=== PATIENT | female | born 1955 | race Caucasian/White ===

== ENCOUNTER 2017-12-07 11:29 | Emergency (ER) | payer OTHER ==
[~2017-12-07] VITALS: Ht 152.4 cm; Wt 62.6 kg
--- NOTE | 2017-12-07 11:37 | ED NEURO DEFICIT/STROKE ---
History of Present Illness General Chief Complaint: Neuro Symptoms/ Deficit Stated Complaint: FACE TINGILING Source: patient Exam Limitations: no limitations Vital Signs & Intake/Output Vital Signs & Intake/Output Vital Signs Date Time Temp Pulse Resp B/P B/P Pulse O2 O2 Flow FiO2 Mean Ox Delivery Rate 12/07 1321 98.6 62 18 113/59 96 Room Air 12/07 1209 98 Room Air 12/07 1142 97.8 68 16 122/82 98 Room Air Allergies Coded Allergies: MDX - Codeine (07/22/08) MDX - Flu Vaccine (07/22/08) MDX - Penicillin (07/22/08) MDX - Pneumococcal Vaccine (07/22/08) Uncoded Allergies: Med Allergies PENICILLIN,CODEINE, FLU SHOT, PNEUMONIA SHOT Triage Nurses Notes Reviewed? 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 Patient first felt it 2 days ago while walking her dog, described as pins and needles that lasted for 2 minutes and self- resolved. Happened again yesterday while walking her dog and again today while using the computer. Sole symptom was right facial paresthesia, same each time. She denies concurrent weakness, slurred speech, vision changes, drooling, headache, lightheadedness, extremity weakness/numbness, ataxia. She feels well currently and has no complaints. SHe has no history of hypertension, dyslipidemia, diabetes, and does not smoke. No family history of CVA. Past History Medical History Any Pertinent Medical History? see below for history Surgical History Surgical History: non-contributory Family History Hx Contributory? No Review of Systems Review of Systems Constitutional: Reports: no symptoms. EENTM: Reports: no symptoms. Respiratory: Reports: no symptoms. Cardiovascular: Reports: no symptoms. GI: Reports: no symptoms. Genitourinary: Reports: no symptoms. Musculoskeletal: Reports: no symptoms. Skin: Reports: no symptoms. Neurological/Psychological: Reports: no symptoms. Hematologic/Endocrine: Reports: no symptoms. Immunologic/Allergic: Reports: no symptoms. All Other Systems: Reviewed and Negative Physical Exam Physical Exam General Appearance: well developed/nourished, no apparent distress Head: atraumatic, normal appearance Eyes: Bilateral: normal appearance, PERRL, EOMI. Ears, Nose, Throat: moist mucous membrane, hearing grossly normal Neck: normal inspection, supple, full range of motion Respiratory: normal breath sounds, chest non-tender, no respiratory distress Cardiovascular: regular rate/rhythm Gastrointestinal: soft, non-tender Back: normal inspection, normal range of motion Extremities: normal range of motion Psychiatric: awake, alert, oriented x 3 Cranial Nerves: normal hearing, normal speech, PERRL, left eyelid droop (chronic ), otherwise symmetric, uvula midline, no facial droop Coordination/Gait: normal gait Motor/Sensory: no motor/sensory deficits Core Measures CVA/TIA Diagnosis: No Sepsis Present: No Sepsis Focused Exam Completed? No Progress Differential Diagnosis: Robles's Palsy, electrolyte imbalance, hypoglycemia, migraine GOODEN, seizure disorder, stroke, subarachnoid Hem. Plan of Care: Orders Procedure Date/time Status TROPONIN LEVEL 12/07 1144 Active MAGNESIUM 12/07 1144 Active LIPID PANEL 12/07 1144 Active COMPREHENSIVE METABOLIC PANEL 12/07 1144 Active CBC WITHOUT DIFFERENTIAL 12/07 114 Complete EKG 12/07 114 Active Laboratory Tests 12/07/17 1230: Anion Gap 9, Estimated GFR > 60, BUN/Creatinine Ratio 34.0 H, Glucose 99, Calcium 9.5, Magnesium 2.1, Total Bilirubin 0.7, AST 26, ALT 29, Alkaline Phosphatase 89, Troponin I Pending, Total Protein 6.8, Albumin 4.2, Globulin 2.6 , Albumin/Globulin Ratio 1.6, Triglycerides 113, Cholesterol 171, LDL Cholesterol, Calc 96, HDL Cholesterol 53, Cholesterol/HDL Ratio 3, CBC w Diff NO MAN DIFF REQ, RBC 4.94, MCV 89.2, MCH 31.2 H, MCHC 35.0, RDW 13.1, MPV 8.0, Gran % 54.0, Lymphocytes % 33.8, Monocytes % 9.7 H, Eosinophils % 2.1, Basophils % 0.4, Absolute Granulocytes 2.9, Absolute Lymphocytes 1.8, Absolute Monocytes 0.5, Absolute Eosinophils 0.1, Absolute Basophils 0 Initial ED EKG: NSR, RBBB Departure Departure Disposition: HOME OR SELF CARE Condition: Stable Clinical Impression Primary Impression: Facial paresthesia Referrals: Mariana CASTILLO,Garcia Patient Has No Primary Care Dr (PCP/Family) Additional Instructions: 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 Start taking a baby aspirin daily (81mg). Aspirin can cause GI bleeding so watch for dark stools. Return to ER if you experience any new or worsening symptoms. Departure Forms: Customer Survey General Discharge Information
[2017-12-07 12:49] LABS: ABSOLUTE BASOPHIL COUNT 0 /CUMM (0.0-0.2); ABSOLUTE EOSINOPHIL COUNT 0.1 /CUMM (0.0-0.7); ABSOLUTE GRANULOCYTE CT 2.9 /CUMM (1.4-6.5); ABSOLUTE LYMPH COUNT 1.8 /CUMM (1.2-3.4); ABSOLUTE MONOCYTE COUNT 0.5 /CUMM (0.10-0.60); BASOPHIL % 0.4 % (0.0-2.0); EOSINOPHIL % 2.1 % (0-5); MEAN CORPUSCULAR HGB 31.2 PG (27.0-31.0); MEAN CORPUSCULAR VOLUME 89.2 FL (81.0-99.0); PLATELET COUNT 247 /CUMM (130-400); RBC DISTRIBUTION WIDTH 13.1 % (11.5-14.5); RED BLOOD CELL CT 4.94 /CUMM (4.20-5.40); WHITE BLOOD CELL COUNT 5.4 /CUMM (4.8-10.8)
[2017-12-07 13:21] VITALS: BP 113/59
== END 2017-12-07 13:30 ==
LOC: ERH 11:29
PROVIDERS: Internal Medicine
DX: R20.2 Paresthesia of skin (principal)
CPT/HCPCS: 93005; 93010